=== PATIENT | male | born 1955 | race Caucasian/White ===

== ENCOUNTER 2021-07-06 13:10 | Outpatient (REF) | payer SELFPAY ==
--- NOTE | 2021-07-06 13:44 | MHC.AU.P13 ---
Hearing Instrument Problem Date of Visit: 07/06/21 Left Ear: Flight Surgeon: Phonak Model: NAJMA Q90-UP Serial Number: [id number] Repair Warranty: Loss and Damage Warranty: Battery Size: 675 Type of Mold: WESTONE Dispensed By: [facility] Date of Fittin09/24/2014 Follow-Up Summary: Patient brought in left LEMOS - not working. Tried cleaning, removing filters/earhook - no sound. Discussed repair option but patient interested in obtaining new hearing aid. Scheduled Audio RV 07/12/21 and provided patient DEMO Namja P90-UP to trial with his current left earmold. Patient given back original Najma Q90-UP hearing aid. Signature: Provider:
== END 2021-07-06 13:11 | disposition home or self-care (01) ==
LOC: HO.HAP 13:10
PROVIDERS: Visit Provider Family Medicine
DX: Z13.89 Encounter for screening for other disorder (principal)

== ENCOUNTER 2021-07-12 08:27 | Outpatient (REF) | payer BC, SELFPAY ==
--- NOTE | 2021-07-12 13:02 | MHC.AU.AHA ---
Adult Audiological Evaluation Date of Visit: 07/12/21 Reason for Appointment: History of asymmetrical hearing loss and otosclerosis. Patient arrives to determine if there has been a change in hearing. Previous Hearing Test Results: At this clinic on 11/09/2019- Right: Normal sloping to severe sensorineural hearing loss. Left: Mild to profound mixed hearing loss. Ear History: Recent Ear Drainage: None Reported Recent Ear Pain: None Reported Recent Ear Infections: None Reported Previous Ear Surgery: Left Ear Hearing Instrument History- Left Ear: Index Clerk: [facility] Model: RAFA Q90-UP Serial Number: [id number] Battery Size: 675 Warranty: Loss and Damage Warranty: Dispensed By: [facility] Date of Fittin09/24/2014 Otoscopy: Right Ear: Unremarkable Left Ear: Unremarkable Tympanometry: Tympanometry performed due to: To assess integrity of the middle ear system Right Ear: Normal Middle Ear System (Type A) Left Ear: Normal Middle Ear System (Type A) Hearing Evaluation: Transducer(s) Used: Insert Earphones Method: Conventional Audiometry Stimuli Used: Pure Tones Right Ear: Description of Hearing: Normal sloping to moderately-severe sensorineural hearing loss Left Ear: Description of Hearing: Mild to severe mixed hearing loss Speech Recognition Threshold (SRT): Method Used: Recorded Lists Stimuli Used: Spondee Words Right Ear: 30 dBHL Left Ear: 50 dBHL Word Discrimination: Method: Recorded Lists Word Lists Used: W-22 Right Ear: 96% at 70 dBHL Left Ear: 80% at 80 dBHL Most Comfortable Level (MCL): Right Ear: 70 dBHL Left Ear: 80 dBHL Comparison: Compared to most recent evaluation: Thresholds have decreased slightly Recommendations: Audiological re-evaluation in one year. Patient's hearing aid recently stopped working. He currently has a loaner instrument. He would prefer to purchase a new hearing aid rather than repair the older hearing aid. See hearing aid evaluation report for more details. Diagnosis: Primary Diagnosis: H90.A32 Mixed HL, Unilateral, Left Ear, W/Restricted Contralateral Signature: Provider: Deyvi Balbuena, [facility]
== END 2021-07-12 08:28 | disposition home or self-care (01) ==
LOC: HO.SH 08:27
PROVIDERS: Visit Provider Family Medicine
DX: H90.A32 Mixed conductive and sensorineural hearing loss, unilateral, left ear with restricted hearing on the contralateral side (principal)
CPT/HCPCS: 92557; 92567

== ENCOUNTER 2021-07-12 09:15 | Outpatient (REF) | payer SELFPAY ==
--- NOTE | 2021-07-21 15:44 | MHC.AU.HAS ---
Hearing Aid Evaluation Date of Visit: 07/12/21 Historical Information: Description of Hearing: Right: Normal to moderately-severe sensorineural hearing loss Left: Mild to severe mixed hearing loss Current personal amplification information, if applicable: A left-sided Phonak Najma Q90-UP Summary: Patient was seen for audiological re-evaluation (see separate report for details). Patient's hearing aid recently stopped working. He would rather purchase a new hearing instead of repairing it, as it is 7 years old. For now, he would like to stay with a left-sided instrument, but feels that in another year he may consider trying one for the right side. He would like to stay with the BTE style. He currently has a loaner Phonak Najma P90 and feels he hears better with it than his old one. Initially, the plan was to order a Phonak Najma P70-UP; however, upon further looking at his history, it may not be the best fit. Previously, the hearing in the left ear was much worse and needed an ultra-powered hearing aid; however, since his revision surgery, the hearing in the left ear has improved significantly. Additionally, if he were to get a right-sided hearing aid next year, his right ear is not in the fitting range for a Najma P70-UP. He would either have mismatched hearing aids that would be unable to work together. [employer]la recently launced their Evolv AI line. Both ears are well within the fitting range for the Evolv AI 2000 Power Plus BTE. Called patient to discuss. He is open to trying it. At the fitting, the loaner Najma can be verifit as well so that he can go home and compare both to see which one he prefers. If he would prefer to stay with the Najma, we could then order him his own. Hearing Aid Prescription: Based on the individual?s shared listening needs, communication environments, dexterity, desire for connectivity, and personal preferences, the following prescription for amplification has been made: Left ear: Dowel Sander Operator: Carla Model: Evolv AI 2000 Power Plus BTE Battery Size: 13 Action Taken/Action Needed: Earmold Impressions Taken Hearing Instrument Fitting to be scheduled when materials arrive Primary Diagnosis: H90.A32 Mixed HL, Unilateral, Left Ear, W/Restricted Contralateral Signature: Provider: Deyvi Balbuena, [facility]
== END 2021-07-12 09:16 | disposition home or self-care (01) ==
LOC: HO.HAP 09:15
PROVIDERS: Visit Provider Family Medicine
DX: Z46.1 Encounter for fitting and adjustment of hearing aid (principal); H90.A32 Mixed conductive and sensorineural hearing loss, unilateral, left ear with restricted hearing on the contralateral side
CPT/HCPCS: 92591

== ENCOUNTER 2021-08-16 08:59 | Outpatient (REF) | payer SELFPAY ==
--- NOTE | 2021-08-18 09:54 | MHC.AU.HFL ---
Hearing Instrument Fitting- Adult- Left Ear Date of Visit: 08/16/21 Hearing Instrument(s) Dispensed: Left Ear: Plate Worker: [employer] Model: Evolv AI 2000 BTE 13P+ Serial Number: [id number] Repair Warranty: 10/23/2024 Loss and Damage Warranty: 10/23/2024 Service Plan: 10/23/2014 Battery Size: 13 Color: Champagne Type of Mold: Westone Skeleton-Style Otoblast Clear Standard Vent Summary of Fitting: Feedback canceller run. Verifit performed and levels adjusted to better reach targets. Experience manager site set to 3. Patient was pleased with the sound of the instrument. He reports that he finds the sound clearer than the Phonak Najma UP he was wearing previously. Hearing aid was paired to the patient's phone. TopiVert sandeep was installed and demonstrated. Hearing aid care and maintenance were discussed and practiced. Recommendations: Hearing Instrument maintenance in 6 months, or sooner if needed. Patient is an experienced hearing aid user and will contact our office if a follow-up is needed. Diagnosis Code(s): Primary Diagnosis: H90.A32 Mixed HL, Unilateral, Left Ear, W/Restricted Contralateral Signature: Provider: Deyvi Balbuena, CCC-A
== END 2021-08-16 09:00 | disposition home or self-care (01) ==
LOC: HO.HAP 08:59
PROVIDERS: Visit Provider Family Medicine
DX: Z46.1 Encounter for fitting and adjustment of hearing aid (principal); H90.A32 Mixed conductive and sensorineural hearing loss, unilateral, left ear with restricted hearing on the contralateral side
CPT/HCPCS: V5257

== ENCOUNTER 2021-09-14 11:09 | Outpatient (REF) | payer SELFPAY ==
--- NOTE | 2021-09-14 14:25 | MHC.AU.HFU ---
Hearing Instrument Follow-Up- Binaural Date of Visit: 09/14/21 Left Ear: Facilities Maintenance Engineer: Carla Model: Randiv AI 2000 BTE 13P+ Serial Number: [id number] Repair Warranty: 10/23/2024 Loss and Damage Warranty: 10/23/2024 Service Plan: 10/23/2024 Battery Size: 13 Color: Dannyagne Type of Mold: Westone Skeleton-Style Otoblast Clear Standard Vent Dispensed By: [facility] Date of Fittin09/24/2014 Follow-Up Summary: Patient arrived for hearing aid follow-up. He reports he has been very happy with the new hearing aid. He feels he has been hearing a lot better, and hearing a wider range of sounds, than with his previous hearing aid. He has been in noisy restaurants, and was able to follow along well with conversation. He reports that the helix lock area of his skeleton mold has been causing discomfort. The tubing has also been building up moisture faster than his previous one. The tubing was replaced with Dri Tubing. Attempted to grind down the area of the mold causing the discomfort- was unable to make much progress due the soft silicone material. A new impression was taken of the left ear without incident. It will be sent to [facility] [employer] for remake. Will also request tubing change to Dri Tubing. Recommendations: Recommendations: Patient will be contacted when materials have arrived. Diagnosis Code(s): Primary Diagnosis: H90.A32 Mixed HL, Unilateral, Left Ear, W/Restricted Contralateral Signature: Provider: Deyvi Balbuena, [facility]
== END 2021-09-14 11:10 | disposition home or self-care (01) ==
LOC: HO.HAP 11:09
PROVIDERS: Visit Provider Family Medicine
DX: Z13.89 Encounter for screening for other disorder (principal)

== ENCOUNTER 2021-10-09 09:03 | Outpatient (REF) | payer SELFPAY | END 2021-10-09 09:04 | disposition home or self-care (01) | LOC: HO.HAP 09:03 | PROVIDERS: Visit Provider Family Medicine | DX: Z13.89 Encounter for screening for other disorder (principal) ==

== ENCOUNTER 2021-10-17 10:01 | Outpatient (REF) | payer SELFPAY | END 2021-10-17 10:02 | disposition home or self-care (01) | LOC: HO.HAP 10:01 | PROVIDERS: Visit Provider Family Medicine | DX: Z13.89 Encounter for screening for other disorder (principal) ==

== ENCOUNTER 2022-12-25 11:32 | Outpatient (REF) | payer SELFPAY ==
--- NOTE | 2022-12-25 13:08 | MHC.AU.HA3 ---
Hearing Instrument Follow-Up- Binaural Date of Visit: 12/25/22 Left Ear: Make, Model, Color, Serial Number: Carla Bryanv AI 1999 BTE 13+ SN: [id number] Color: Diane Slag Skimmer Repair Warranty: 10/23/2024 Slag Skimmer Loss and Damage Warranty: 10/23/2024 [facility] Service Plan: 10/23/2024 Battery Size: 13 Earmold/Dome/CShell/SlimTip: Westone Skeleton-Style Otoblast Clear Standard Vent Dispensed By: [facility] Date of Fittin08/16/2021 Follow-Up Summary: Miguel reported his hearing aid has been intermittent, turning on/off or sounding weak then coming back to full strength. Cleaned hearing aid and ear mold. Vacuumed microphones. Replaced tubing. The hearing aid still sounded weaker than expected given Miguel's hearing loss. Will send to [employer] for in-warranty repair. Programmed loaner using Miguel's own ear mold. Recommendations: Patient will be contacted when materials have arrived. Recommendations (Other): Will need appointment to transfer ear mold from loaner to personal hearing aid. Diagnosis Code(s): Primary Diagnosis: H90.A32 Mixed HL, Unilateral, Left Ear, W/Restricted Contralateral Secondary Diagnosis: H90.A21 SNHL, Unilateral Right Ear, W/Restricted Contralateral Hearing Signature: Provider: Omayra Mullins, [facility]
== END 2022-12-25 11:33 | disposition home or self-care (01) ==
LOC: HO.HAP 11:32
PROVIDERS: Visit Provider Family Medicine
DX: Z13.89 Encounter for screening for other disorder (principal)

== ENCOUNTER 2023-01-11 14:37 | Outpatient (REF) | payer SELFPAY | END 2023-01-11 14:38 | disposition home or self-care (01) | LOC: HO.HAP 14:37 | PROVIDERS: Visit Provider Family Medicine | DX: Z13.89 Encounter for screening for other disorder (principal) ==

== ENCOUNTER 2023-11-25 14:36 | Outpatient (REF) | payer BC, SELFPAY | END 2023-11-25 14:37 | disposition home or self-care (01) | LOC: HO.HAP 14:36 | PROVIDERS: Visit Provider Family Medicine | DX: Z13.89 Encounter for screening for other disorder (principal) ==